=== PATIENT | male | born 1975 ===

== ENCOUNTER 2018-06-16 21:15 | Emergency (ER) | payer SELFPAY ==
[2018-06-16 21:36] VITALS: BP 110/72; PULSE 55; RESP 18; TEMP 97.4; O2SAT 98
[2018-06-16 22:02] LABS: BASO % 0.5 % (0.0-2.0); EOS # 0.1 K/uL (0.0-0.7); EOS % 1.9 % (0.0-4.0); HEMOGLOBIN 13.5 g/dL (12.0-18.0); LYMPH # 2.3 K/uL (1.0-4.3); LYMPH % 44.7 % (20.0-40.0); MEAN CELL VOLUME 92.5 fL (80.0-94.0); MEAN CORPUSCULAR HGB CONC 33.5 g/dL (33.0-37.0); MEAN PLATELET VOLUME 8.9 fL (7.2-11.7); MONO # 0.4 K/uL (0.0-0.8); MONO % 8.3 % (0.0-10.0); NEUT # 2.3 K/uL (1.8-7.0); NEUT % 44.6 % (50.0-75.0); RBC 4.35 Mil/uL (4.40-5.90); RED CELL DISTRIBUTION WIDTH 13.1 % (11.5-14.5); WHITE BLOOD COUNT 5.1 K/uL (4.8-10.8)
[2018-06-16 22:14] LABS: URINE BILIRUBIN NEGATIVE (NEGATIVE); URINE CLARITY CLEAR (Clear); URINE COLOR COLORLESS (YELLOW); URINE GLUCOSE (UA) NORMAL (Normal)
[2018-06-16 22:14] LABS: ALBUMIN 4.4 g/dL (3.5-5.0); BLOOD UREA NITROGEN 15 mg/dL (9-20); CALCIUM 9.2 mg/dl (8.6-10.4); GFR NON-AFRICAN AMERICAN > 60
[2018-06-16 22:15] LABS: URINE BLOOD 1+ (NEGATIVE); URINE LEUKOCYTE ESTERASE NEG Leu/uL (Negative); URINE PROTEIN NEGATIVE (NEGATIVE); URINE UROBILINOGEN NORMAL mg/dL (0.2-1.0)
[2018-06-16 22:15] LABS: ALB/GLOB RATIO 1.8 (1.0-2.1); ALT/SGPT 38 U/L (21-72); AST/SGOT 36 U/L (17-59); LIPASE 122 U/L (23-300)
--- NOTE | 2018-06-16 22:33 | C.PDOC ---
History Of Present Illness 42-year-old male presents to the ED for evaluation of colicky periumbilical pain for the last week. Patient also reports mild nausea, reports soft bowel movements every day. Patient states he has taken an acid reducing medication for his stomach. Patient denies fever, chills, vomiting, diarrhea and constipation. Time Seen by Provider: 06/16/18 21:31 Chief Complaint (Nursing): Abdominal Pain History Per: Patient History/Exam Limitations: no limitations Onset/Duration Of Symptoms: Other (one week ) Current Symptoms Are (Timing): Still Present Location Of Pain/Discomfort: Periumbilical Quality Of Discomfort: "Pain" Associated Symptoms: Nausea. denies: Fever, Chills Additional History Per: Patient Past Medical History Reviewed: Historical Data, Nursing Documentation, Vital Signs Vital Signs: Last Vital Signs Temp 97.4 F L 06/16/18 21:25 Pulse 55 L 06/16/18 21:25 Resp 18 06/16/18 21:25 BP 110/72 06/16/18 21:25 Pulse Ox 98 06/16/18 21:25 Primary Care Provider: FAMILY PROVIDER,NO - Medical History PMH: No Chronic Diseases Denies: Chronic Kidney Disease Surgical History: No Surg Hx Family History: States: Unknown Family Hx - Social History Hx Alcohol Use: Yes Hx Substance Use: No - Immunization History Hx Tetanus Toxoid Vaccination: No Hx Influenza Vaccination: No Hx Pneumococcal Vaccination: No Review Of Systems Constitutional: Negative for: Fever, Chills Gastrointestinal: Positive for: Abdominal Pain (periumbilical ). Negative for: Vomiting, Diarrhea, Constipation Physical Exam - Physical Exam Appears: Non-toxic, No Acute Distress Skin: Normal Color, Warm, Dry Head: Atraumatic, Normacephalic Oral Mucosa: Moist Neck: Supple Chest: Symmetrical, No Deformity, No Tenderness Cardiovascular: Rhythm Regular, No Murmur Respiratory: Normal Breath Sounds, No Rales, No Rhonchi, No Wheezing Gastrointestinal/Abdominal: Soft, No Guarding, No Rebound, Other (abdomen alternatingly dull and tympanic to percussion. negaitve Roberto's sign, negative McBurney's point tenderness ) Extremity: Normal ROM, Capillary Refill (less than 2 seconds ) Neurological/Psych: Oriented x3, Normal Speech, Normal Cognition ED Course And Treatment - Laboratory Results Result Diagrams: 06/16/18 21:58 06/16/18 21:58 Lab Results: Total Bilirubin 0.5 mg/dL (0.2-1.3) 06/16/18 21:58 AST 36 U/L (17-59) 06/16/18 21:58 ALT 38 U/L (21-72) 06/16/18 21:58 Alkaline Phosphatase 73 U/L (38-126) 06/16/18 21:58 Total Protein 6.9 g/dL (6.3-8.3) 06/16/18 21:58 Albumin 4.4 g/dL (3.5-5.0) 06/16/18 21:58 Globulin 2.5 gm/dL (2.2-3.9) 06/16/18 21:58 Albumin/Globulin Ratio 1.8 (1.0-2.1) 06/16/18 21:58 Lipase 122 U/L (23-300) 06/16/18 21:58 Urine Color Colorless (YELLOW) 06/16/18 22:05 Urine Clarity Clear (Clear) 06/16/18 22:05 Urine pH 7.0 (5.0-8.0) 06/16/18 22:05 Ur Specific [place] 1.003 (1.003-1.030) 06/16/18 22:05 Urine Protein Negative mg/dL (NEGATIVE) 06/16/18 22:05 Urine Glucose (UA) Normal mg/dL (Normal) 06/16/18 22:05 Urine Ketones Negative mg/dL (NEGATIVE) 06/16/18 22:05 Urine Blood 1+ (NEGATIVE) H 06/16/18 22:05 Urine Nitrate Negative (NEGATIVE) 06/16/18 22:05 Urine Bilirubin Negative (NEGATIVE) 06/16/18 22:05 Urine Urobilinogen Normal mg/dL (0.2-1.0) 06/16/18 22:05 Ur Leukocyte Esterase Neg Kina/uL (Negative) 06/16/18 22:05 Urine WBC (Auto) < 1 /hpf (0-5) 06/16/18 22:05 Urine RBC (Auto) < 1 /hpf (0-3) 06/16/18 22:05 Lab Interpretation: Normal (UA neg.) O2 Sat by Pulse Oximetry: 98 (on RA ) Pulse Ox Interpretation: Normal - Radiology CXR: Interpreted by Me CXR Interpretation: Yes: No Acute Disease - Other Rad abd x 2 X-Ray: Interpreted by Me (+FOS) Progress Note: bloodwork, urinalysis, obstructive series abdomen ordered and reviewed. Magnesium Citrate PO and Toradol IVP given. Reevaluation Time: 22:32 Reassessment Condition: Improved Medical Decision Making Medical Decision Making: chronic constipation Disposition Doctor Will See Patient In The: Office Counseled Patient/Family Regarding: Studies Performed, Diagnosis - Disposition Referrals: [facility] [Outside] [facility] [employer] [facility] [Outside] [facility] [Outside] Disposition: HOME/ ROUTINE Disposition Time: 22:32 Condition: GOOD Additional Instructions: kurt purgante ahora re-evalua mosquera molestia del abdomen despues de usar el citlalli 2-3 veces Cambios de dieta 7 verduras y frutas crudas diarios kurt mas agua purgantes de vez en cuando latricia necessario Instructions: Constipation in Adults Forms: [employer] ([employer]) Print Language: CAMBODIAN - Clinical Impression Clinical Impression: Abdominal colic - Scribe Statement The provider has reviewed the documentation as recorded by the Scribe (Kelly Romano) Provider Attestation: All medical record entries made by the Scribe were at my direction and personally dictated by me. I have reviewed the chart and agree that the record accurately reflects my personal performance of the history, physical exam, medical decision making, and the department course for this patient. I have also personally directed, reviewed, and agree with the discharge instructions and disposition.
[2018-06-16] MEDS ORDERED: Magnesium Citrate Oral SOL (300 ml) PO ONE (22:35)
[2018-06-16] MEDS ORDERED: Magnesium Citrate Oral SOL (300 ml) ONE (22:44)
--- NOTE | 2018-06-17 10:44 | RAD ---
Date of service: 06/16/2018 PROCEDURE: Radiographs of the chest and abdomen (obstructive series) HISTORY: abd pain COMPARISON: No prior. TECHNIQUE: AP radiograph of the chest, with upright and supine radiographs of the abdomen. 3 views obtained. FINDINGS: CHEST: Lungs: Clear. Cardiovascular: Normal size heart. No pulmonary vascular congestion. No aortic atherosclerotic calcification present Pleura: No pleural fluid. No pneumothorax. Other findings: None. ABDOMEN AND PELVIS: Bowel: Mild constipation, otherwise unremarkable bowel gas pattern. No evidence of mechanical obstruction. Free air: None. Bones: Unremarkable. Other findings: None. IMPRESSION: Mild constipation, otherwise unremarkable radiographs of chest and abdomen. No evidence of mechanical bowel obstruction.
== END 2018-06-16 22:35 | disposition home or self-care (01) ==
LOC: C.ER 21:15
DX: R10.84 Generalized abdominal pain (principal)
CPT/HCPCS: 74022; 80053; 81001; 83690; 85025; 96374; 99284; J1885